=== PATIENT | male | born 1995 | race Hispanic/Latino ===

== ENCOUNTER 2018-02-25 14:16 | Emergency (ER) | payer OTHER ==
[~2018-02-25] VITALS: Ht 175.3 cm; Wt 98.0 kg
[~2018-02-25 14:16] MED LIST: KEFLEX500 MG PO; NOHOMEMEDS
[2018-02-25] MEDS ORDERED: PEN-VEE K,VEET500 MG PO (17:21)
[2018-02-25] MEDS ORDERED: MOTRIN800 MG PO (17:21)
[2018-02-25 17:25] VITALS: BP 148/81
== END 2018-02-25 17:50 | disposition home or self-care (01) ==
LOC: EME 14:16
DX: S01.511A Laceration without foreign body of lip, initial encounter (principal); W22.09XA Striking against other stationary object, initial encounter; Y93.44 Activity, trampolining; F17.200 Nicotine dependence, unspecified, uncomplicated
CPT/HCPCS: 99281; 99283